=== PATIENT | female | born 1960 | race Caucasian/White ===

== ENCOUNTER 2018-03-09 16:14 | Emergency (ER) | END 2018-03-09 19:15 | disposition home or self-care (01) ==

== ENCOUNTER 2018-03-13 11:31 | Emergency (ER) | END 2018-03-13 13:01 | disposition home or self-care (01) ==

== ENCOUNTER 2019-02-26 10:39 | Emergency (ER) | payer MEDICAID ==
[~2019-02-26] VITALS: Ht 157.5 cm; Wt 77.8 kg
[~2019-02-26 10:39] MED LIST: ACET500C5 PO; ERYT1OIN6 LEFT EYE; MINE3.5O30 LEFT EYE
[2019-02-26 10:41] VITALS: BP 141/67; PULSE 70; RESP 20; Ht 157.5 cm; Wt 77.8 kg
[2019-02-26] MEDS ORDERED: MICO100S4 VG (11:34)
--- NOTE | 2019-02-26 14:28 | ERD ---
ER Documentation Chief Complaint Chief Complaint genital problem HPI 58-year-old female presenting with vaginal itching. Patient states that this is been going on for the last few days. Denies any dysuria. Denies back pain or pelvic pain. Medical history is diabetes on insulin. NKDA. Surgical history cholecystectomy. Social history denies ROS All systems reviewed and are negative except as per history of present illness. Medications Home Meds Active Scripts Miconazole Nitrate (Miconazole 7) 100 Mg Supp.vag, 100 MG VG QHS, #7 SUPP.VAG Prov:JOHN PAUL TAN PA-C 02/26/19 Acetaminophen* (Tylophen*) 500 Mg Capsule, 1 CAP PO Q6H PRN for PAIN AND OR ELEVATED TEMP, #15 CAP Prov:MELCHOR ALVARADO MD 03/13/18 Mineral Oil/Petrolatum,White (ARTIFICIAL TEARS EYE OINT) 3.5 Gm Oint...g., 1 APPLIC LEFT EYE NEEDED PRN for DRY EYES, #1 EA Prov:MELCHOR ALVARADO MD 03/13/18 Erythromycin Base (Erythromycin) 1 Gm Oint...g., 1 APPLIC LEFT EYE QID for 7 Days Prov:YAEL MAZA PA-C 03/09/18 Allergies Allergies: Coded Allergies: No Known Allergy (Unverified , 03/09/18) PMhx/Soc History of Surgery: Yes (PATT) Anesthesia Reaction: No Hx Neurological Disorder: No Hx Respiratory Disorders: No Hx Cardiac Disorders: Yes (HTN) Hx Psychiatric Problems: No Hx Miscellaneous Medical Probl: Yes (DM) Hx Alcohol Use: No Hx Substance Use: No Hx Tobacco Use: No Smoking Status: Never smoker FmHx Family History: No diabetes, No coronary disease, No other Physical Exam Vitals Vital Signs Date Temp Pulse Resp B/P (MAP) Pulse Ox O2 O2 Flow FiO2 Time Delivery Rate 02/26/19 97.6 70 20 141/67 97 10:41 (91) Physical Exam GENERAL: The patient is well-appearing, well-nourished, in no acute distress HEENT: Atraumatic. Conjunctivae are pink. Pupils equal, round, and reactive to light. There is no scleral icterus. Tympanic membranes clear bilaterally. Oropharynx clear. CHEST: Clear to auscultation bilaterally. There are no rales, wheezes or rhonchi. HEART: Regular rate and rhythm. No murmurs, clicks, rubs or gallops. : Cystocele noted. Cottage cheesy white discharge noted within the vaginal vault. No CMT. Results 24 hrs Laboratory Tests Test 02/26/19 11:11 Bedside Urine pH (LAB) 5.5 Bedside Urine Protein (LAB) Negative Bedside Urine Glucose (UA) 0.50% Bedside Urine Ketones (LAB) Negative Bedside Urine Blood 2+ Bedside Urine Nitrite (LAB) Negative Bedside Urine Leukocyte Esterase (L Negative Procedures/MDM MDM: 58-year-old female presenting with vaginal itching. Patient's exam is concerning for yeast vaginitis. I have low suspicion for acute abdominal emergency. I have low suspicion for UTI. Patient is discharged with strict ER precautions. Patient is told symptoms change or worsen to return immediately to the ER. All questions answered at discharge Departure Diagnosis: Primary Impression: Cystocele Additional Impression: Yeast infection Condition: Stable Patient Instructions: Pelvic Organ Prolapse: Surgery for Cystocele, Vaginal Infection: Yeast (Candidiasis) Referrals: [facility] OPERATOR [place] [address] [facility] [address] [place], [place] [id number] OFFICE FAX DR.ABUSLEME ESAU [address] [place] [place] [id number] [facility] [address] [place] [address] [address] [facility] [address] [facility] [address] [address] [address] [address] [place], [place] [id number] [facility] [address] [place], [place] [id number] [address] [facility] [id number] - SANDRA GARCIA [address] [facility] [address] [address] MORENO, DASHA [address] [facility]. [address], [facility] [address] [address] [address] [place] [address] Additional Instructions: FOLLOW UP WITH YOUR PRIMARY CARE PHYSICIAN TOMORROW.Return to this facility if you are not improving as expected. JOHN PAUL TAN PA-C Feb 26, 2019 14:28
== END 2019-02-26 11:47 | disposition home or self-care (01) ==
LOC: FTE 10:39
DX: N81.10 Cystocele, unspecified (principal); E11.9 Type 2 diabetes mellitus without complications; I10 Essential (primary) hypertension; B37.9 Candidiasis, unspecified; Z79.4 Long term (current) use of insulin
CPT/HCPCS: 81003; Z7502; 99284